=== PATIENT | male | born 1975 | race African-American/Black ===

== ENCOUNTER 2018-08-01 18:57 | Emergency (ER) | payer OTHER, SELFPAY ==
[2018-08-01] MEDS ORDERED: Lidocaine 1% w/Epinephrine 1:100K 20 ML VIAL ONE (19:34)
== END 2018-08-01 19:59 | disposition home or self-care (01) ==
LOC: SCSER 18:57
DX: K05.219 Aggressive periodontitis, localized, unspecified severity (principal); F17.210 Nicotine dependence, cigarettes, uncomplicated
CPT/HCPCS: 41800; J2001

== ENCOUNTER 2018-10-28 19:25 | Emergency (ER) | payer SELFPAY ==
[2018-10-28 19:59] LABS: Bilirubin Negative (Negative); Blood, Urine Large (Negative); Clarity Clear (Clear); Glucose, Urine (Dipstick) Negative (Negative); Leukocyte Moderate (Negative); Nitrite Negative (Negative); Protein, Urine (Dipstick) 100 mg/dL (Neg-Trace); Specific Gravity, Urine 1.015 (1.005-1.030); pH, Urine 7.5 (5.0-9.0)
[2018-10-28 20:05] LABS: Bacteria/HPF Rare-Few HPF (None Seen); RBC/HPF GREATER THAN 50-TNTC HPF (0-3)
[2018-10-28] MEDS ORDERED: Lidocaine 1% PF 5 ML VIAL ONE (20:28)
[2018-10-28] MEDS ORDERED: Sulfameth/Trimethoprim DS 800-160mg TAB ONE (20:28)
[2018-10-28] MEDS ORDERED: cefTRIAXone\\ROCEPHIN 1 GM VIAL ONE (20:28)
== END 2018-10-28 20:52 | disposition home or self-care (01) ==
LOC: SCSER 19:25
DX: N30.91 Cystitis, unspecified with hematuria (principal); F17.210 Nicotine dependence, cigarettes, uncomplicated
CPT/HCPCS: 81003; 81015; 96372; J0696; J2001

== ENCOUNTER 2019-05-31 12:39 | Emergency (ER) | payer SELFPAY ==
[2019-05-31] MEDS ORDERED: Fluorescein Opthalmic Strip ONE (13:44)
== END 2019-05-31 14:12 | disposition home or self-care (01) ==
LOC: SCSER 12:39
DX: H10.31 Unspecified acute conjunctivitis, right eye (principal); F17.210 Nicotine dependence, cigarettes, uncomplicated
CPT/HCPCS: 99283

== ENCOUNTER 2022-04-15 19:22 | Inpatient (IN) | payer SELFPAY ==
[~2022-04-15 19:22] MED LIST: Iopamidol 370 76% 100 ML VIAL ONE
[2022-04-15] MEDS ORDERED: Ketorolac Tromethamine 30 MG/ML VIAL ONE (19:42)
[2022-04-15 20:03] LABS: #Basophils 0.1 thou/uL (0.0-0.2); #Eosinphils 0.1 thou/uL (0.0-0.7); #Lymphocytes 2.1 thou/uL (1.20-3.40); #Monocytes 0.7 thou/uL (0.11-0.59); #Neutrophils 5.6 thou/uL (1.40-6.50); %Basophils 0.6 % (0.0-1.0); %Eosinophils 1.4 % (0.0-10.0); %Lymphocytes 24.3 % (21.0-51.0); %Monocytes 7.7 % (0.0-10.0); %Neutrophils 65.9 % (42.0-75.0); Hemoglobin 13.6 g/dL (14.0-18.0); Mean Corpuscular HGB CONC 32.3 g/dL (32.0-36.0); Mean Corpuscular Hemoglobin 28.7 pg (27.0-31.0); Mean Platelet Volume 6.2 fL (7.4-10.4); Platelet Count 400 thou/uL (130-400); RBC Distribution Width 13.1 % (11.5-14.5); Red Blood Cell (RBC) Count 4.73 mill/uL (4.70-6.10); White Blood Cell (WBC) Count 8.5 thou/uL (4.8-10.8)
[2022-04-15 20:23] LABS: ALT (SGPT) 16 U/L (8-55); AST (SGOT) 14 U/L (5-34); Albumin 4.2 g/dL (3.5-5.0); Alkaline Phosphatase 82 U/L (40-110); Anion Gap 14 mmol/L (10-20); BUN (Urea Nitrogen) 15 mg/dL (8.9-20.6); Bilirubin, Total 0.5 mg/dL (0.2-1.2); Calc. Creatinine Clearance 0 mL/min (70-130); Calcium 9.1 mg/dL (7.8-10.44); Carbon Dioxide 22 mmol/L (22-29); Chloride 104 mmol/L (98-107); Globulin 3.1 g/dL (2.4-3.5); Glucose 90 mg/dL (70-105); Potassium 3.6 mmol/L (3.5-5.1); Protein, Total 7.3 g/dL (6.0-8.3); Sodium 136 mmol/L (136-145)
[2022-04-15] MEDS ORDERED: Ondansetron PF 4 MG/2 ML Vial IVP PRN (23:45)
[2022-04-15] MEDS ORDERED: Ondansetron ODT 4 MG TAB SL PRN (23:45)
[2022-04-15] MEDS ORDERED: Acetaminophen 325 MG TAB PO PRN (23:45)
[2022-04-15] MEDS: Morphine 2 MG/ML VIAL SLOW IVP PRN (23:50)
[2022-04-15] MEDS: Lactated Ringer's 1,000 ML IV SCH (23:51)
[2022-04-16 01:27] LABS: SARS-CoV-2 NAA Rapid Test Not Detected (NotDetected)
[2022-04-16 01:34] VITALS: BMI 27.3
[2022-04-16 06:19] LABS: #Basophils 0.1 thou/uL (0.0-0.2); #Eosinphils 0.3 thou/uL (0.0-0.7); #Lymphocytes 3.2 thou/uL (1.20-3.40); #Monocytes 0.7 thou/uL (0.11-0.59); #Neutrophils 5.1 thou/uL (1.40-6.50); %Eosinophils 2.7 % (0.0-10.0); %Lymphocytes 34.5 % (21.0-51.0); %Monocytes 7.9 % (0.0-10.0); %Neutrophils 53.9 % (42.0-75.0); Hemoglobin 13.7 g/dL (14.0-18.0); Mean Corpuscular HGB CONC 32.1 g/dL (32.0-36.0); Mean Corpuscular Volume 90.2 fL (78.0-98.0); Mean Platelet Volume 6.5 fL (7.4-10.4); Platelet Count 377 thou/uL (130-400); RBC Distribution Width 12.9 % (11.5-14.5); Red Blood Cell (RBC) Count 4.75 mill/uL (4.70-6.10); White Blood Cell (WBC) Count 9.4 thou/uL (4.8-10.8)
[2022-04-16 06:41] LABS: Anion Gap 12 mmol/L (10-20); BUN (Urea Nitrogen) 16 mg/dL (8.9-20.6); Calc. Creatinine Clearance 111 mL/min (70-130); Calcium 8.9 mg/dL (7.8-10.44); Carbon Dioxide 23 mmol/L (22-29); Chloride 106 mmol/L (98-107); Glucose 84 mg/dL (70-105); Potassium 3.8 mmol/L (3.5-5.1); Sodium 137 mmol/L (136-145)
[2022-04-16] MEDS: Morphine 2 MG/ML VIAL SLOW IVP PRN ×2 (09:14→11:18)
[2022-04-16] MEDS: Lactated Ringer's 1,000 ML IV SCH (09:20)
[2022-04-16] MEDS ORDERED: Ketorolac Tromethamine 30 MG/ML VIAL IVP SCH (11:15)
[2022-04-16] MEDS ORDERED: Morphine 4 MG/ML VIAL SLOW IVP PRN ×2 (11:17→17:21)
[2022-04-16] MEDS ORDERED: Morphine 2 MG/ML VIAL SLOW IVP SCH (11:30)
[2022-04-16] MEDS ORDERED: Midazolam HCl 2 mg/2 ml Vial ONE (14:08)
[2022-04-16] MEDS ORDERED: fentaNYL Citrate/PF 100 MCG/2 ML SYRINGE ONE (14:09)
[2022-04-16] MEDS ORDERED: Lidocaine 1% w/Epinephrine 1:100K 20 ML VIAL ONE (14:10)
[2022-04-16] MEDS ORDERED: Bupivacaine 0.25% HCL 30 ML VIAL ONE (14:10)
[2022-04-16] MEDS ORDERED: Ondansetron PF 4 MG/2 ML Vial ONE (14:32)
[2022-04-16] MEDS ORDERED: Rocuronium Bromide 10 MG/ML (10ML VIAL) ONE (14:32)
[2022-04-16] MEDS ORDERED: Dexamethasone 20 MG/5 ML VIAL ONE (14:32)
[2022-04-16] MEDS ORDERED: PROPOFOL 200 MG/20 ML VIAL ONE (14:32)
[2022-04-16] MEDS ORDERED: PHENYLEPHRINE-NS 100 MCG/ML 10 ML SYRINGE ONE (14:32)
[2022-04-16] MEDS ORDERED: Lidocaine 1% PF 5 ML VIAL ONE (14:32)
[2022-04-16] MEDS ORDERED: Dexmedetomidine 200 MCG/2 ML VIAL ONE (15:09)
[2022-04-16] MEDS ORDERED: SUGAMMADEX SODIUM 200 MG/2 ML VIAL ONE (15:49)
[2022-04-16] MEDS ORDERED: Promethazine HCl 25 MG/ML VIAL IM PRN ×2 (16:30→17:21)
[2022-04-16] MEDS ORDERED: Promethazine HCl 25 MG/ML VIAL IVPB PRN (16:30)
[2022-04-16] MEDS ORDERED: Ondansetron HCl/PF 4 MG/2 ML Vial IVP PRN (16:30)
[2022-04-16] MEDS ORDERED: Ketorolac Tromethamine 30 MG/ML VIAL ONE (16:56)
[2022-04-16] MEDS ORDERED: Fentanyl 100 MCG/2 ML VIAL ONE (17:01)
[2022-04-16] MEDS: Ketorolac Tromethamine 30 MG/ML VIAL IVP SCH (17:01)
[2022-04-16] MEDS ORDERED: HYDROcodone/Acetaminophen 7.5/325 mg Tablet PO PRN ×2 (17:21)
[2022-04-16] MEDS ORDERED: Dextrose 50% Abboject 50 ML SYRINGE SLOW IVP PRN (17:21)
[2022-04-16] MEDS ORDERED: Morphine 2 MG/ML VIAL SLOW IVP PRN (17:21)
[2022-04-16] MEDS ORDERED: Dextrose 5% in Water 1,000 ML IV PRN (17:21)
[2022-04-16] MEDS ORDERED: hydrALAZINE 20 MG/ML VIAL SLOW IVP PRN (17:21)
[2022-04-16] MEDS ORDERED: Ondansetron PF 4 MG/2 ML Vial IVP PRN (17:21)
[2022-04-16] MEDS: D5 1/2 NS w/20 mEq KCL 1,000 ML IV SCH (21:39)
[2022-04-17] MEDS: Famotidine 20 MG TAB PO SCH ×3 (00:21→20:51)
[2022-04-17] MEDS: Ketorolac Tromethamine 30 MG/ML VIAL IVP SCH ×5 (00:22→23:43)
[2022-04-17] MEDS: D5 1/2 NS w/20 mEq KCL 1,000 ML IV SCH ×3 (01:47→12:01)
[2022-04-17 07:30] LABS: #Lymphocytes 2.2 thou/uL (1.20-3.40); #Neutrophils 13.3 thou/uL (1.40-6.50); %Basophils 0.2 % (0.0-1.0); %Eosinophils 0.1 % (0.0-10.0); %Monocytes 6.1 % (0.0-10.0); %Neutrophils 80.6 % (42.0-75.0); Hemoglobin 13.3 g/dL (14.0-18.0); Mean Corpuscular HGB CONC 32.2 g/dL (32.0-36.0); Mean Corpuscular Hemoglobin 28.9 pg (27.0-31.0); Mean Corpuscular Volume 89.9 fL (78.0-98.0); Mean Platelet Volume 7.2 fL (7.4-10.4); Platelet Count 382 thou/uL (130-400); RBC Distribution Width 12.9 % (11.5-14.5); Red Blood Cell (RBC) Count 4.61 mill/uL (4.70-6.10); White Blood Cell (WBC) Count 16.6 thou/uL (4.8-10.8)
[2022-04-17 07:55] LABS: Anion Gap 12 mmol/L (10-20); BUN (Urea Nitrogen) 16 mg/dL (8.9-20.6); Calc. Creatinine Clearance 105 mL/min (70-130); Calcium 8.4 mg/dL (7.8-10.44); Carbon Dioxide 21 mmol/L (22-29); Chloride 104 mmol/L (98-107); Glucose 111 mg/dL (70-105); Potassium 4.1 mmol/L (3.5-5.1); Sodium 133 mmol/L (136-145)
[2022-04-18] MEDS: D5 1/2 NS w/20 mEq KCL 1,000 ML IV SCH ×2 (00:59→05:20)
[2022-04-18] MEDS: Ketorolac Tromethamine 30 MG/ML VIAL IVP SCH (05:16)
[2022-04-18 06:01] LABS: #Eosinphils 0.1 thou/uL (0.0-0.7); #Lymphocytes 3.6 thou/uL (1.20-3.40); #Monocytes 1.1 thou/uL (0.11-0.59); #Neutrophils 7.4 thou/uL (1.40-6.50); %Basophils 0.2 % (0.0-1.0); %Lymphocytes 29.3 % (21.0-51.0); %Monocytes 9.1 % (0.0-10.0); %Neutrophils 60.4 % (42.0-75.0); Hemoglobin 12.2 g/dL (14.0-18.0); Mean Corpuscular HGB CONC 32.1 g/dL (32.0-36.0); Mean Corpuscular Hemoglobin 28.9 pg (27.0-31.0); Mean Corpuscular Volume 89.9 fL (78.0-98.0); Mean Platelet Volume 6.5 fL (7.4-10.4); Platelet Count 360 thou/uL (130-400); RBC Distribution Width 12.7 % (11.5-14.5); White Blood Cell (WBC) Count 12.2 thou/uL (4.8-10.8)
[2022-04-18 06:33] LABS: Anion Gap 11 mmol/L (10-20); BUN (Urea Nitrogen) 11 mg/dL (8.9-20.6); Calc. Creatinine Clearance 106 mL/min (70-130); Calcium 8.5 mg/dL (7.8-10.44); Carbon Dioxide 23 mmol/L (22-29); Chloride 108 mmol/L (98-107); Glucose 96 mg/dL (70-105); Sodium 138 mmol/L (136-145)
[2022-04-18 08:30] VITALS: BP 121/74; TEMP 98
[2022-04-18] MEDS: Famotidine 20 MG TAB PO SCH (08:52)
== END 2022-04-18 10:45 | disposition home or self-care (01) | DRG 352 ==
LOC: ERS 19:22 → SURG B 21:47 → INTOOBSV 21:47 → SURG B 23:08 → OBSVTOIN 04-16 16:11
PROVIDERS: ADMIT Specialist; ATTEND Specialist
PROC: 0YQ60ZZ Repair Left Inguinal Region, Open Approach (ICD-10-PCS; principal; 2022-04-16)
PROC: 0YJ64ZZ Inspection of Left Inguinal Region, Percutaneous Endoscopic Approach (ICD-10-PCS; 2022-04-16)
DX: K40.30 Unilateral inguinal hernia, with obstruction, without gangrene, not specified as recurrent (principal); Z20.822 Contact with and (suspected) exposure to COVID-19; F17.210 Nicotine dependence, cigarettes, uncomplicated; I10 Essential (primary) hypertension
CPT/HCPCS: 36415; 74177; 80048; 80053; 85025; 96372; 96374; 96375; G0378; J1100; J1885; J2250; J2270; J2405; J2704; J3010; J3480; J7120; Q9967; S0020; U0002

== ENCOUNTER 2022-12-22 17:35 | Observation (INO) | payer BC, OTHER, SELFPAY ==
[~2022-12-22 17:35] MED LIST changes: -Iopamidol 370 76% 100 ML VIAL ONE; +Iopamidol-370 76% 500 ML 1 ML ONE
[2022-12-22 18:41] LABS: #Basophils 0.1 thou/uL (0.0-0.2); #Eosinphils 0.1 thou/uL (0.0-0.7); #Monocytes 1.2 thou/uL (0.11-0.59); #Neutrophils 8.7 thou/uL (1.40-6.50); %Basophils 0.8 % (0.0-1.0); %Eosinophils 0.6 % (0.0-10.0); %Monocytes 9.4 % (0.0-10.0); %Neutrophils 66.3 % (42.0-75.0); Hemoglobin 14.4 g/dL (14.0-18.0); Mean Corpuscular HGB CONC 32.4 g/dL (32.0-36.0); Mean Corpuscular Hemoglobin 28.4 pg (27.0-31.0); Mean Corpuscular Volume 87.7 fl (78.0-98.0); Platelet Count 429 10x3/uL (130-400); RBC Distribution Width 12.8 % (11.5-14.5); Red Blood Cell (RBC) Count 5.06 mill/uL (4.70-6.10); White Blood Cell (WBC) Count 13.1 10x3/uL (4.8-10.8)
[2022-12-22 19:05] LABS: ALT (SGPT) 16 U/L (8-55); AST (SGOT) 17 U/L (5-34); Albumin 4.3 g/dL (3.5-5.0); Alkaline Phosphatase 88 U/L (40-110); Anion Gap 16 mmol/L (10-20); BUN (Urea Nitrogen) 11 mg/dL (8.9-20.6); Bilirubin, Total 0.9 mg/dL (0.2-1.2); Calc. Creatinine Clearance 0 mL/min (70-130); Carbon Dioxide 21 mmol/L (22-29); Chloride 100 mmol/L (98-107); Estimated GFR 84; Glucose 94 mg/dL (70-105); Protein, Total 8.3 g/dL (6.0-8.3); Sodium 133 mmol/L (136-145)
[2022-12-22] MEDS ORDERED: Clindamycin/D5W 600 mg/50 ml Premix Bag ONE (20:00)
[2022-12-22] MEDS ORDERED: methylPREDNISolone Sod Succ/PF 125 MG/2 ML VIAL ONE (20:00)
[2022-12-22] MEDS ORDERED: Fentanyl 100 MCG/2 ML VIAL ONE (20:00)
[2022-12-22] MEDS ORDERED: Vancomycin 1 GM/200 ML (FROZEN) BAG ONE (22:10)
[2022-12-23 00:15] VITALS: BMI 27.8
[2022-12-23] MEDS ORDERED: Sodium Chloride 0.9% 1,000 ML IV SCH (00:15)
[2022-12-23] MEDS ORDERED: Ketorolac Tromethamine 30 MG/ML VIAL IVP PRN (00:33)
[2022-12-23] MEDS: Sodium Chloride 0.9% 1,000 ML IV SCH ×2 (00:47→07:30)
[2022-12-23] MEDS: Ampicillin/Sulbactam 3 GM in Sodium Chloride 0.9% 100 ML IVPB SCH ×2 (00:51→05:18)
[2022-12-23] MEDS ORDERED: Boostrix 0.5 ML (Tdap) VIAL (>/=7 yrs of age) IM ONE (05:00)
[2022-12-23] MEDS ORDERED: TETANUS, DIPHTHERIA TOX,ADULT (TDVAX) 0.5 ML VIAL IM ONE (06:00)
[2022-12-23] MEDS ORDERED: INFANRIX 0.5 ML (DTaP) SYRINGE (PEDI) IM ONE (06:00)
[2022-12-23 19:17] VITALS: BP 107/67; TEMP 97.5
== END 2022-12-23 08:59 | disposition home or self-care (01) ==
LOC: ERS 17:35 → T4-A 23:14
PROVIDERS: ADMIT Student in an Organized Health Care Education/Training Program; ATTEND Student in an Organized Health Care Education/Training Program
DX: A41.9 Sepsis, unspecified organism (principal); K04.7 Periapical abscess without sinus; R59.0 Localized enlarged lymph nodes; F17.210 Nicotine dependence, cigarettes, uncomplicated
CPT/HCPCS: 36415; 70491; 80053; 83605; 85025; 87040; 90472; 90715; 96365; 96367; 96375; 96376; G0378; J0295; J2930; J3010; J3370-JW; J3490; J7050; Q9967